=== PATIENT | female | born 1995 ===

== ENCOUNTER 2017-02-25 17:31 | Emergency (ER) | payer MEDICAID, OTHER ==
[2017-02-25 17:38] VITALS: BMI 33.3
--- NOTE | 2017-02-25 17:40 | ED PDOC ---
Arrival/HPI - General Historian: Patient <Tj Rice - Last Filed: 02/26/17 14:09> <Juan A Call - Last Filed: 02/27/17 19:10> - General Time Seen by Provider: 02/25/17 17:32 - History of Present Illness Narrative History of Present Illness (Text): 02/25/17 17:34 21 y/o female, pmh including pylonephritis/asthma, nkda, c/o throat pain and chest tightness x 2 days. Pt. stated that her throat has been painful, associated with the chest tightness for the past 2 days, stated that she has history of asthma and on the albuterol MDI, noted to have fever today 100.6F, no dizziness, no recent traveling, no night sweat, no cough, no dizziness, no other medical or psychological complaints. (Tj Rice) Past Medical History - Provider Review Nursing Documentation Reviewed: Yes - Infectious Disease Hx of Infectious Diseases: None - Pulmonary Hx Asthma: Yes - Renal Hx Pyelonephritis: Yes - Musculoskeletal/Rheumatological Hx Falls: Yes - Genitourinary/Gynecological Hx Urinary Tract Infection: Yes - Psychiatric Hx Substance Use: No - Anesthesia Hx Anesthesia: No <Tj Rice - Last Filed: 02/26/17 14:09> Family/Social History - Physician Review Nursing Documentation Reviewed: Yes Family/Social History: Unknown Family HX Smoking Status: Current Some Days Smoker Hx Alcohol Use: Yes Hx Substance Use: No <Tj Rice - Last Filed: 02/26/17 14:09> Allergies/Home Meds <Tj Rice - Last Filed: 02/26/17 14:09> <Juan A Call - Last Filed: 02/27/17 19:10> Allergies/Adverse Reactions: Allergies No Known Allergies Allergy (Verified 01/23/16 18:05) Review of Systems - Review of Systems Constitutional: Fatigue, Fevers Eyes: absent: Vision Changes ENT: absent: Hearing Changes Respiratory: absent: Cough, Sputum Cardiovascular: Other (chest tightness). absent: Chest Pain, Palpitations, Syncope Gastrointestinal: absent: Abdominal Pain, Nausea, Vomiting Musculoskeletal: absent: Arthralgias, Back Pain, Myalgias Neurological: absent: Headache, Dizziness, Focal Weakness, Gait Changes Endocrine: absent: Diaphoresis <Rice,Tj Q - Last Filed: 02/26/17 14:09> Physical Exam Vital Signs Reviewed: Yes Temperature: Afebrile Blood Pressure: Normal Pulse: Tachycardic Respiratory Rate: Normal Appearance: Positive for: Well-Appearing, Non-Toxic, Uncomfortable Pain Distress: None Mental Status: Positive for: Alert and Oriented X 3 - Systems Exam Head: Present: Atraumatic, Normocephalic Pupils: Present: PERRL Extroacular Muscles: Present: EOMI Conjunctiva: Present: Normal Ears: Present: NORMAL TM, Normal Canal. No: Erythema Mouth: Present: Moist Mucous Membranes Pharnyx: No: ERYTHEMA, EXUDATE, TONSILS ENLARGED, Muffled/Hoarse Voice, Strider , Soft Palate/Uvular Edema Nose (External): Present: Atraumatic. No: Abrasion, Contusion Nose (Internal): Present: Normal Inspection, No Active Bleeding. No: Rhinorrhea , Septal Hematoma, Epistaxis Neck: Present: Normal Range of Motion Respiratory/Chest: Present: Clear to Auscultation, Good Air Exchange, Decreased Breath Sounds (decrease aeration bilaterally with no retractions. ), Rhonchi ( mild rhonchi on the lower lobes). No: Respiratory Distress, Accessory Muscle Use, Rales, Retracting, Tachypneic Cardiovascular: Present: Regular Rate and Rhythm, Normal S1, S2. No: Murmurs Abdomen: Present: Normal Bowel Sounds. No: Tenderness, Distention, Peritoneal Signs Back: Present: Normal Inspection Upper Extremity: Present: Normal Inspection. No: Cyanosis, Edema Lower Extremity: Present: Normal Inspection. No: Edema Neurological: Present: GCS=15, Speech Normal, Motor Func Grossly Intact, Gait Normal, Memory Normal Skin: Present: Warm, Dry, Normal Color. 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 -Chest xray show rt. lower lobe infiltrate. -Labs are non-significant with negative d-dimer and negative troponin with 2 days of symptom. -UA show mild UTI -Rapid flu negative -IVF running and pt. receiving the nebulizer treatment with IV rocephin/ azithromycin. 02/25/17 20:27 -There is increase aeration after the duoneb but pt. feels shaky despite 1L of IVF, afebrile, no cardiopulmonary complaints, feels anxious, anxiolytic 0.25mg po ordered. Pt. is not driving home. 02/26/17 20:59 -I discussed the case and will sign out the case to Dr. Call as he will follow up the patient for dispo. If the patient will be discharge home, the discharge instruction and plan will be as follow. -I discussed about the side effect of levaquin including possible achilles tendon rupture which she can not do any gym/exercise including running, pt. acknowledged and she agreed on the treatment. -Case discussed with ER attending Dr. Call as we reviewed labs/ekg/chest x-ray together which he agreed on the treatment plan. -Discharge home with levaquin, prednisone, albuterol MDI, zyrtec, stay hydrated , bed rest, follow up with your own pmd within 2 days, no breast feeding until waiting 48 hours after the last dose of prescribed medication, return to the ER for any new or worsening signs or symptoms (Tj Rice) 02/27/17 19:08 Patient seen; given tylenol for fever and heart rate has come down very nicely with resolution of tachycardia; lungs CTA b/L - patient well-appearing and feeling much better - asking to go home - will d/c as discussed with JAKOB Rice. ( Juan A Call) - Lab Interpretations Microbiology Results: Microbiology Results 02/25/17 18:34 Urine,Clean Catch Urine Culture - Final 50-100,000 CFU/ML. MULTIPLE SPECIES. SUGGEST REPEAT SPECIMEM. Lab Results: 02/25/17 18:15 02/25/17 18:15 Lab Results 02/25/17 18:20: Urine Color Yellow, Urine Appearance Clear, Urine pH 7.0, Ur Specific [place] 1.010, Urine Protein Negative, Urine Glucose (UA) Negative, Urine Ketones Negative, Urine Blood Large H, Urine Nitrate Negative, Urine Bilirubin Negative, Urine Urobilinogen 1.0 H, Ur Leukocyte Esterase Trace H, Urine RBC Tntc, Urine WBC 1 - 3, Ur Epithelial Cells 1 - 3, Urine Bacteria Few 02/25/17 18:15: D-Dimer, Quantitative 0.32 02/25/17 18:15: Sodium 139, Potassium 4.2, Chloride 100, Carbon Dioxide 29, Anion Gap 14, BUN 14, Creatinine 0.9, Est GFR ( Amer) > 60, Est GFR (Non- Af Amer) > 60, Random Glucose 81, Calcium 9.8, Total Bilirubin 1.8 H, AST 31, ALT 32, Alkaline Phosphatase 107, Lactate Dehydrogenase 410, Total Creatine Kinase 55, Troponin I < 0.01, Total Protein 8.8 H, Albumin 4.5, Globulin 4.4, Albumin/Globulin Ratio 1.0 L 02/25/17 18:15: WBC 10.7, RBC 4.60, Hgb 14.8, Hct 41.6, MCV 90.4, MCH 32.2, MCHC 35.6, RDW 12.7, Plt Count 269, MPV 9.8, Gran % 83.3 H, Lymph % (Auto) 8.7 L , [place] % (Auto) 7.1 H, Eos % (Auto) 0.8 L, Baso % (Auto) 0.1, Gran # 8.89 H, Lymph # 0.9 L, [place] # 0.8 H, Eos # 0.1, Baso # 0.01 02/25/17 17:52: Influenza Typ A,B (EIA) Negative for flu a/b - RAD Interpretation Radiology Orders: 02/25/17 17:41 CHEST TWO VIEWS (PA/LAT) [RAD] Stat 02/25/17 17:41 CHEST TWO VIEWS (PA/LAT) [RAD] Stat possible early infiltrate vs. bronchitis. (Tj Rice) - EKG Interpretation EKG Interpretation (Text): 02/25/17 19:14 Sinus tachycardia @ 119 BPM, no ST elevation or depression, no T wave inversion. (Tj Rice) - Medication Orders Current Medication Orders: Discontinued Medications Acetaminophen (Tylenol 325mg Tab) 975 mg PO STAT STA Stop: 02/25/17 20:55 Last Admin: 02/25/17 21:06 Dose: 975 mg Albuterol/Ipratropium (Duoneb 3 Mg/0.5 Mg (3 Ml) Ud) 6 ml IH STAT STA Stop: 02/25/17 17:42 Last Admin: 02/25/17 19:09 Dose: 6 ml Alprazolam (Xanax) 0.25 mg PO STAT STA PRN Reason: Protocol Stop: 02/25/17 20:28 Last Admin: 02/25/17 20:41 Dose: 0.25 mg Sodium Chloride (Sodium Chloride 0.9%) 1,000 mls @ 999 mls/hr IV .Q1H1M STA Stop: 02/25/17 18:44 Last Admin: 02/25/17 19:09 Dose: 999 mls/hr Famotidine (Pepcid 20mg/50ml Premix) 20 mg in 50 mls @ 100 mls/hr IVPB STAT STA Stop: 02/25/17 18:14 Last Admin: 02/25/17 19:09 Dose: 100 mls/hr Ceftriaxone Sodium (Rocephin 1 Gram Ivpb) 1 gm in 100 mls @ 200 mls/hr IVPB STAT STA PRN Reason: Protocol Stop: 02/25/17 19:39 Last Admin: 02/25/17 19:30 Dose: 200 mls/hr Sodium Chloride (Sodium Chloride 0.9%) 500 mls @ 999 mls/hr IV .Q31M STA Stop: 02/25/17 19:40 Last Admin: 02/25/17 20:29 Dose: 999 mls/hr Azithromycin (Zithromax 500mg In Ns) 500 mg in 250 mls @ 167 mls/hr IVPB STAT STA PRN Reason: Protocol Stop: 02/25/17 20:39 Last Admin: 02/25/17 20:12 Dose: 167 mls/hr Ketorolac Tromethamine (Toradol) 30 mg IVP STAT STA Stop: 02/25/17 17:47 Last Admin: 02/25/17 19:10 Dose: 30 mg Prednisone (Prednisone Tab) 40 mg PO STAT STA Stop: 02/25/17 20:13 Last Admin: 02/25/17 20:41 Dose: 40 mg - PA / HEALTH SERVICE COORDINATOR / Resident Statement MIRI has reviewed & agrees with the documentation as recorded. MIRI has examined the patient and agrees with the treatment plan. <Tj Rice - Last Filed: 02/26/17 14:09> - PA / HEALTH SERVICE COORDINATOR / Resident Statement MIRI has reviewed & agrees with the documentation as recorded. MIRI has examined the patient and agrees with the treatment plan. <Juan A Call - Last Filed: 02/27/17 19:10> Disposition/Present on Arrival - Present on Arrival Any Indicators Present on Arrival: No History of DVT/PE: Yes History of Uncontrolled Diabetes: Yes Urinary Catheter: Yes History of Decub. Ulcer: No History Surgical Site Infection Following: None - Disposition Have Diagnosis and Disposition been Completed?: Yes Disposition Time: 19:14 Patient Plan: Discharge <Tj Rice - Last Filed: 02/26/17 14:09> <Juan A Call - Last Filed: 02/27/17 19:10> - Disposition Diagnosis: Pneumonia, UTI (urinary tract infection) Disposition: HOME/ ROUTINE Condition: GOOD Additional Instructions: Discharge home with levaquin, prednisone, albuterol MDI, zyrtec, stay hydrated with lots of fluids (2-3 liters per day), bed rest, follow up with your own pmd or medical clinic within 2 days, no breast feeding until waiting 48 hours after the last dose of prescribed medication, return to the ER for any new or worsening signs or symptoms. Prescriptions: Albuterol HFA [Ventolin HFA 90 mcg/actuation (8 g)] 2 puff IH [id number] PRN #1 in PRN Reason: Other Cetirizine HCl [Zyrtec] 10 mg PO DAILY #7 capsule levoFLOXacin [Levaquin] 750 mg PO DAILY #5 tab predniSONE [Prednisone] 2 tab PO DAILY #8 tab Referrals: [facility] at [facility] [place] [Outside] - Follow up with primary [facility] [Outside] - Follow up with primary Forms: WORK NOTE
[2017-02-25] MEDS ORDERED: Albuterol-Ipratrop 3 mg / 0.5 (3 ml) UD IH STA (17:41)
[2017-02-25] MEDS ORDERED: Sodium Chloride 0.9% 1,000 ML IV STA (17:44)
[2017-02-25] MEDS ORDERED: Famotidine 20mg/50ml 20 MG/50 ML BAG IVPB STA (17:45)
[2017-02-25 18:21] LABS: ADD MANUAL DIFF? NO
[2017-02-25 18:25] LABS: BASO # 0.01 K/mm3 (0.0-2.0); BASO % 0.1 % (0.0-3.0); EOS # 0.1 (0.0-0.7); EOS % 0.8 % (1.5-5.0); GRAN # 8.89 (1.4-6.5); GRAN % 83.3 % (50.0-68.0); HEMATOCRIT 41.6 % (36.0-48.0); LYMPH # 0.9 (1.2-3.4); LYMPH % 8.7 % (22.0-35.0); MEAN CELL VOLUME 90.4 fL (80.0-105.0); MEAN CORPUSCULAR HEMOGLOBIN 32.2 pg (25.0-35.0); MEAN CORPUSCULAR HGB CONC 35.6 g/dl (31.0-37.0); MEAN PLATELET VOLUME 9.8 fl (7.0-11.0); MONO # 0.8 (0.1-0.6); MONO % 7.1 % (1.0-6.0); PLATELET COUNT 269 10^3/uL (120.0-450.0); RED CELL DISTRIBUTION WIDTH 12.7 % (11.5-14.5); WHITE BLOOD COUNT 10.7 10^3/ul (4.5-11.0)
[2017-02-25 18:28] LABS: URINE APPEARANCE CLEAR (CLEAR); URINE BILIRUBIN NEGATIVE (NEGATIVE); URINE BLOOD LARGE (NEGATIVE); URINE COLOR YELLOW (YELLOW); URINE GLUCOSE (UA) NEGATIVE (NEGATIVE); URINE KETONE NEGATIVE (NEGATIVE); URINE LEUKOCYTE ESTERASE TRACE Leu/uL (NEGATIVE); URINE PROTEIN NEGATIVE mg/dL (<30 mg/dL)
[2017-02-25 18:38] LABS: ALKALINE PHOSPHATASE 107 U/L (38-133); ALT/SGPT 32 U/L (7-56); AST/SGOT 31 U/L (15-39); BILIRUBIN,TOTAL 1.8 mg/dL (0.2-1.3); BLOOD UREA NITROGEN 14 mg/dL (7-21); CALCIUM 9.8 mg/dL (8.4-10.5); CARBON DIOXIDE 29 mmol/L (21-33); CHLORIDE 100 mmol/L (98-107); GFR AFRICAN-AMERICAN > 60; GLUCOSE,RANDOM 81 mg/dL (70-110); POTASSIUM 4.2 mmol/L (3.6-5.0); SODIUM 139 mmol/L (132-148); TOTAL PROTEIN 8.8 g/dL (5.8-8.3)
[2017-02-25 18:39] LABS: URINE BACTERIA FEW (NEG); URINE RBC TNTC /hpf (0-2)
[2017-02-25 18:52] LABS: TROPONIN I < 0.01 ng/mL
[2017-02-25] MEDS ORDERED: cefTRIAXone 1 gm 1 GM/100 ML BAG IVPB STA (19:10)
[2017-02-25] MEDS ORDERED: Sodium Chloride 0.9% 500 ML IV STA (19:10)
[2017-02-25] MEDS ORDERED: Azithromycin 500MG/NS 250ml 500 MG/250 ML BAG IVPB STA (19:10)
--- NOTE | 2017-02-25 20:52 | CARD ---
APPROVED REPORT EKG Measurement Heart [id number] <Conclusion> Sinus tachycardia Otherwise normal ECG
[2017-02-25 21:57] VITALS: BP 111/52; PULSE 95; RESP 20; TEMP 99.2; O2SAT 98
--- NOTE | 2017-02-26 08:08 | RAD ---
HISTORY: decrease aeration COMPARISON: No prior. TECHNIQUE: Chest PA and lateral FINDINGS: LUNGS: Right infrahilar peribronchial thickening. There may be similar findings less conspicuous the left lung base projecting over the heart. The appearance of the right lung base may represent a very mild very minimally patchy infiltrate here. This is clinically suspect PLEURA: No significant pleural effusion identified. No pneumothorax apparent. CARDIOVASCULAR: Normal. OSSEOUS STRUCTURES: Scoliosis VISUALIZED UPPER ABDOMEN: Normal. OTHER FINDINGS: None. IMPRESSION: Nonspecific findings at the lung bases as described above. Peribronchial thickening associated with a mild bronchitis versus a patchy minimal early infiltrate are considerations.
== END 2017-02-25 22:48 | disposition home or self-care (01) ==
LOC: ED 17:31
DX: J18.9 Pneumonia, unspecified organism (principal); N39.0 Urinary tract infection, site not specified; F17.210 Nicotine dependence, cigarettes, uncomplicated
CPT/HCPCS: 71020; 80053; 81001; 82550; 83615; 84484; 85025; 85378; 87086; 87804; 93005; 96365; 96367; 96375; 99284; J0456; J0696; J1885; J7040